=== PATIENT | female | born 1970 | race Hispanic/Latino ===

== ENCOUNTER 2017-11-03 11:42 | Emergency (ER) | payer BC ==
[2017-11-03 12:03] VITALS: BP 125/83; PULSE 69; RESP 16; TEMP 98.5; O2SAT 100; BMI 19.8
--- NOTE | 2017-11-03 12:23 | ED PDOC ---
HPI: Allergic Reaction Time Seen by Provider: 11/03/17 12:19 Chief Complaint (Nursing): Allergic Reaction Chief Complaint (Provider): Allergic reaction History Per: Patient History/Exam Limitations: no limitations Onset/Duration Of Symptoms: Days (yesterday) Current Symptoms Are (Timing): Still Present Additional Complaint(s): Pt. with allergic reaction after taking a bath and bubble bath with new soap. Has itching all over body. Rashes on the chest, legs, abd, arms, face. Some swelling of face and hands. Took benadryl 2 hrs ago and helped the itching. No fever, chills, cough, dyspnea, dizziness, weakness, headaches. No chest pain. No trouble swallowing. Past Medical History Reviewed: Nursing Documentation, Vital Signs Vital Signs: Last Vital Signs Temp 98.5 F 11/03/17 12:01 Pulse 69 11/03/17 12:01 Resp 16 11/03/17 12:01 BP 125/83 11/03/17 12:01 Pulse Ox 100 11/03/17 12:01 - Medical History PMH: No Chronic Diseases - Surgical History Surgical History: No Surg Hx - Family History Family History: States: Unknown Family Hx - Social History Current smoker - smoking cessation education provided: No Alcohol: None Drugs: Denies - Home Medications Home Medications: Ambulatory Orders Medication Instructions Recorded DiphenhydrAMINE [Benadryl] 25 mg PO TID PRN 5 Days cap 11/03/17 Famotidine [Pepcid] 20 mg PO DAILY PRN #6 tab 11/03/17 predniSONE [predniSONE Tab] 20 mg PO BID 5 Days tab 11/03/17 - Allergies Allergies/Adverse Reactions: Allergies Allergy/AdvReac Type Severity Reaction Status Date / Time No Known Allergies Allergy Verified 11/03/17 12:13 Review of Systems ROS Statement: Except As Marked, All Systems Reviewed And Found Negative Skin: Positive for: Rash Physical Exam - Reviewed Nursing Documentation Reviewed: Yes Vital Signs Reviewed: Yes - Physical Exam Appears: Positive for: Non-toxic, No Acute Distress Head Exam: Positive for: ATRAUMATIC, NORMAL INSPECTION, NORMOCEPHALIC Skin: Positive for: Warm, Rash (chest, upper back, abd, legs, feet, and b/l hands with patches of mild blanching erythema mild raised, nontender, no fluctuance: in hives pattern) Eye Exam: Positive for: EOMI, Normal appearance, PERRL ENT: Positive for: Normal ENT Inspection, Other (no swelling of lips or tongue) . Negative for: Pharyngeal Erythema, Tonsillar Exudate Neck: Positive for: Normal, Painless ROM Cardiovascular/Chest: Positive for: Regular Rate, Rhythm Respiratory: Positive for: CNT, Normal Breath Sounds Gastrointestinal/Abdominal: Positive for: Bowel Sounds, Soft. Negative for: Tenderness Back: Negative for: L CVA Tenderness, R CVA Tenderness Extremity: Positive for: Normal ROM. Negative for: Tenderness, Pedal Edema Neurologic/Psych: Positive for: Alert, Oriented - ECG O2 Sat by Pulse Oximetry: 100 Pulse Ox Interpretation: Normal - Progress ED Course And Treament: 1427: Stable. AAOx3. Pain free. Rash improved. Fu with pcp. Disposition - Clinical Impression Clinical Impression: Allergic reaction - Patient ED Disposition Is Patient to be Admitted: No Counseled Patient/Family Regarding: Diagnosis, Need For Followup, Rx Given - Disposition [facility]errals: [facility] - 11/04/17 Disposition: Routine/Home Disposition Time: 14:28 Condition: STABLE Additional Instructions: Return if not better in 3 days. Prescriptions: DiphenhydrAMINE [Benadryl] 25 mg PO TID PRN 5 Days cap PRN Reason: Itching / Pruritus Famotidine [Pepcid] 20 mg PO DAILY PRN #6 tab PRN Reason: Pain predniSONE [predniSONE Tab] 20 mg PO BID 5 Days tab Instructions: General Allergic Reaction (ED) Forms: [facility] (Citizen Of [place]), [facility] ED School/Work Excuse
== END 2017-11-03 14:34 | disposition home or self-care (01) ==
LOC: H.ER 11:42
DX: T78.40XA Allergy, unspecified, initial encounter (principal)